=== PATIENT | male | born 1985 | race Caucasian/White ===

== ENCOUNTER 2016-09-06 08:19 | Inpatient (IN) | payer OTHER ==
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
[2016-09-06] MEDS ORDERED: ONDANSETRON 4 MG/2 ML VIAL IVP ONE (08:30)
[2016-09-06] MEDS ORDERED: fentaNYL 100 MCG/2 ML INJ IVP ONE (08:30)
[2016-09-06] MEDS ORDERED: IOPAMIDOL (ISOVUE-300) 100 ML BTL ONE (08:33)
[2016-09-06 09:04] LABS: ANION GAP 19 mEq/L (8-16); CALCIUM 9.9 mg/dL (8.5-10.4); CARBON DIOXIDE 20 mEq/l (22-31); CHLORIDE 107 mEq/L (97-110); CREATININE 0.9 mg/dL (0.7-1.3); GLOMERULAR FILTRATION RATE > 60; GLUCOSE 117 mg/dL (70-100); POTASSIUM 4.4 mEq/L (3.5-5.2); SODIUM 146 mEq/L (134-144)
[2016-09-06 09:09] LABS: % IMMATURE GRANULYOCYTES 1.8 % (0.0-1.1); ABSOLUTE IMMATURE GRANULOCYTES 0.15 10^3/uL (0.00-0.10); ADD DIFF? NO; ADD MORPH? NO; ADD SCAN? NO; ATYPICAL LYMPHOCYTE FLAG 0 (0-99); FRAGMENT RBC FLAG 0 (0-99); HEMATOCRIT 46.6 % (40.0-51.0); HEMOGLOBIN 15.9 g/dL (13.7-17.5); LEFT SHIFT FLG 20 (0-99); LIPEMIA HEMOLYSIS FLAG 90 (0-99); MEAN CELL HEMOGLOBIN 30.9 pg (27.9-34.1); MEAN CELL HEMOGLOBIN CONCENTR. 34.1 g/dL (32.4-36.7); MEAN CELL VOLUME 90.5 fL (81.5-99.8); MEAN PLATELET VOLUME 10.9 fL (8.7-11.7); PLATELET CLUMPS FLAG 10 (0-99); PLATELET COUNT 259 10^3/uL (150-400); RED BLOOD CELL COUNT 5.15 10^6/uL (4.40-6.38); RED CELL DISTRIBUTION WIDTH 11.8 % (11.5-15.2)
[2016-09-06] MEDS ORDERED: LET GEL TOPICAL 1 EA SYR TP ONE (09:19)
[2016-09-06 09:33] LABS: INR 1.08 (0.83-1.16); PROTIME(PATIENT) 13.9 SEC (12.0-15.0)
[2016-09-06] MEDS ORDERED: ONDANSETRON 4 MG/2 ML VIAL IVP PRN (09:53)
[2016-09-06] MEDS ORDERED: ACETAMINOPHEN 325 MG TAB PO PRN (09:53)
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
[2016-09-06] MEDS ORDERED: NS 1,000 ML IV ONE (10:02)
[2016-09-06] MEDS: HYDROmorphONE/DILAUDID 1 MG/ML SYR IVP PRN ×2 (12:43→23:28)
[2016-09-06] MEDS: NS 1,000 ML IV SCH (13:35)
[2016-09-06] MEDS: levETIRAcetam 500 MG TAB PO SCH ×2 (14:38→19:59)
[2016-09-06 15:52] LABS: % IMMATURE GRANULYOCYTES 0.4 % (0.0-1.1); ABSOLUTE IMMATURE GRANULOCYTES 0.05 10^3/uL (0.00-0.10); ADD DIFF? NO; ADD MORPH? NO; ADD SCAN? NO; ATYPICAL LYMPHOCYTE FLAG 0 (0-99); FRAGMENT RBC FLAG 0 (0-99); MEAN PLATELET VOLUME 10.5 fL (8.7-11.7); PLATELET CLUMPS FLAG 0 (0-99)
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
[2016-09-06 15:58] LABS: HEMATOCRIT 38.8 % (40.0-51.0); HEMOGLOBIN 13.3 g/dL (13.7-17.5); LEFT SHIFT FLG 10 (0-99); LIPEMIA HEMOLYSIS FLAG 90 (0-99); MEAN CELL HEMOGLOBIN CONCENTR. 34.3 g/dL (32.4-36.7); MEAN CELL VOLUME 90.4 fL (81.5-99.8); PLATELET COUNT 156 10^3/uL (150-400); RED BLOOD CELL COUNT 4.29 10^6/uL (4.40-6.38); RED CELL DISTRIBUTION WIDTH 11.9 % (11.5-15.2)
[2016-09-06] MEDS: HYDROCODONE/APAP 5/325 TAB PO PRN (19:58)
[2016-09-06] MEDS ORDERED: levETIRAcetam 500 MG TAB PO SCH (21:00)
[2016-09-06 23:27] LABS: HEMATOCRIT 38.6 % (40.0-51.0)
[2016-09-06 23:49] LABS: POTASSIUM 4.4 mEq/L (3.5-5.2)
[2016-09-07 04:37] LABS: % IMMATURE GRANULYOCYTES 0.4 % (0.0-1.1); ABSOLUTE IMMATURE GRANULOCYTES 0.04 10^3/uL (0.00-0.10); ADD DIFF? NO; ADD MORPH? NO; ADD SCAN? NO; ATYPICAL LYMPHOCYTE FLAG 0 (0-99); FRAGMENT RBC FLAG 0 (0-99); HEMOGLOBIN 12.8 g/dL (13.7-17.5); LEFT SHIFT FLG 10 (0-99); LIPEMIA HEMOLYSIS FLAG 80 (0-99); MEAN CELL HEMOGLOBIN 30.8 pg (27.9-34.1); MEAN CELL HEMOGLOBIN CONCENTR. 33.7 g/dL (32.4-36.7); MEAN CELL VOLUME 91.3 fL (81.5-99.8); PLATELET CLUMPS FLAG 10 (0-99); PLATELET COUNT 132 10^3/uL (150-400); RED BLOOD CELL COUNT 4.16 10^6/uL (4.40-6.38); RED CELL DISTRIBUTION WIDTH 12.2 % (11.5-15.2)
[2016-09-07 04:56] LABS: ANION GAP 11 mEq/L (8-16); CARBON DIOXIDE 20 mEq/l (22-31); CHLORIDE 111 mEq/L (97-110); CREATININE 0.7 mg/dL (0.7-1.3); GLOMERULAR FILTRATION RATE > 60; GLUCOSE 103 mg/dL (70-100); POTASSIUM 4.4 mEq/L (3.5-5.2); SODIUM 142 mEq/L (134-144)
[2016-09-07] MEDS: HYDROCODONE/APAP 5/325 TAB PO PRN ×2 (05:46→17:08)
[2016-09-07] MEDS: HYDROmorphONE/DILAUDID 1 MG/ML SYR IVP PRN (05:46)
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
[2016-09-07] MEDS: levETIRAcetam 500 MG TAB PO SCH ×2 (08:18→21:02)
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
[2016-09-07] MEDS ORDERED: BISACODYL 10 MG SUPP PR PRN (11:28)
[2016-09-07] MEDS ORDERED: LACTULOSE 20 GM/30 ML UDCUP PO PRN (11:28)
[2016-09-07] MEDS ORDERED: POLYETHYLENE GLYCOL 3350 17 GM PKT PO PRN (11:28)
[2016-09-07] MEDS ORDERED: MAGNESIUM HYDROXIDE 30 ML UDCUP PO PRN (11:28)
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
[2016-09-07] MEDS: SENNOSIDES/DOCUSATE SODIUM TAB PO SCH (21:02)
[2016-09-07] MEDS: NS 1,000 ML IV SCH (22:54)
[2016-09-08] MEDS: HYDROCODONE/APAP 5/325 TAB PO PRN ×3 (03:04→19:05)
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
[2016-09-08] MEDS: SENNOSIDES/DOCUSATE SODIUM TAB PO SCH ×2 (10:30→20:39)
[2016-09-08] MEDS: levETIRAcetam 500 MG TAB PO SCH ×2 (10:31→20:39)
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
[2016-09-08] MEDS: HYDROmorphONE/DILAUDID 1 MG/ML SYR IVP PRN (16:25)
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
[2016-09-09] MEDS: SENNOSIDES/DOCUSATE SODIUM TAB PO SCH ×2 (08:50→19:57)
[2016-09-09] MEDS: levETIRAcetam 500 MG TAB PO SCH ×2 (08:50→19:55)
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
[2016-09-09] MEDS: HYDROCODONE/APAP 5/325 TAB PO PRN ×2 (10:18→18:10)
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
[2016-09-10] MEDS: HYDROCODONE/APAP 5/325 TAB PO PRN ×2 (01:07→08:21)
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
[2016-09-10 07:53] VITALS: BP 125/84; PULSE 57; RESP 14; TEMP 98.2
[2016-09-10] MEDS: levETIRAcetam 500 MG TAB PO SCH (08:21)
[2016-09-10] MEDS: SENNOSIDES/DOCUSATE SODIUM TAB PO SCH (08:22)
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
[2016-09-10 14:21] VITALS: O2SAT 96
== END 2016-09-10 13:35 | disposition home or self-care (01) | DRG 964 ==
LOC: F2N 11:13 → F3N 09-09 18:38
PROVIDERS: ADMIT Surgery; ATTEND Surgery
DX: S22.048A Other fracture of fourth thoracic vertebra, initial encounter for closed fracture (principal); S22.42XA Multiple fractures of ribs, left side, initial encounter for closed fracture; S27.0XXA Traumatic pneumothorax, initial encounter; S06.6X0A Traumatic subarachnoid hemorrhage without loss of consciousness, initial encounter; S41.112A Laceration without foreign body of left upper arm, initial encounter; S01.511A Laceration without foreign body of lip, initial encounter; V13.4XXA Pedal cycle driver injured in collision with car, pick-up truck or van in traffic accident, initial encounter; Y93.55 Activity, bike riding; S01.111A Laceration without foreign body of right eyelid and periocular area, initial encounter
CPT/HCPCS: 82947-QW; 92507-GN; 92523-GN; 96374; 97116-GP; 97162-GP; 97165-GO; 97168-GO; 97535-GO; J1170; J2405; J3010; L0174; Q9967

== ENCOUNTER 2016-09-17 11:24 | Emergency (ER) | payer OTHER ==
[2016-09-17] MEDS ORDERED: IOPAMIDOL (ISOVUE-300) 100 ML BTL ONE (11:58)
[2016-09-17 12:00] LABS: % IMMATURE GRANULYOCYTES 0.6 % (0.0-1.1); ABSOLUTE IMMATURE GRANULOCYTES 0.04 10^3/uL (0.00-0.10); ADD DIFF? NO; ADD MORPH? NO; ADD SCAN? NO; ATYPICAL LYMPHOCYTE FLAG 10 (0-99); FRAGMENT RBC FLAG 0 (0-99); HEMATOCRIT 40.9 % (40.0-51.0); HEMOGLOBIN 14.2 g/dL (13.7-17.5); LEFT SHIFT FLG 0 (0-99); LIPEMIA HEMOLYSIS FLAG 90 (0-99); MEAN CELL HEMOGLOBIN 30.7 pg (27.9-34.1); MEAN CELL HEMOGLOBIN CONCENTR. 34.7 g/dL (32.4-36.7); MEAN CELL VOLUME 88.3 fL (81.5-99.8); MEAN PLATELET VOLUME 9.2 fL (8.7-11.7); PLATELET CLUMPS FLAG 10 (0-99); PLATELET COUNT 249 10^3/uL (150-400); RED BLOOD CELL COUNT 4.63 10^6/uL (4.40-6.38); RED CELL DISTRIBUTION WIDTH 11.5 % (11.5-15.2)
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
[2016-09-17] MEDS ORDERED: HYDROmorphONE/DILAUDID 1 MG/ML SYR IVP ONE (12:09)
[2016-09-17 12:19] LABS: ANION GAP 14 mEq/L (8-16); CALCIUM 9.6 mg/dL (8.5-10.4); CARBON DIOXIDE 25 mEq/l (22-31); CHLORIDE 102 mEq/L (97-110); CREATININE 0.7 mg/dL (0.7-1.3); GLOMERULAR FILTRATION RATE > 60; GLUCOSE 84 mg/dL (70-100); SODIUM 141 mEq/L (134-144)
[2016-09-17 13:14] VITALS: BP 115/54; PULSE 45; RESP 16; TEMP 97.9; O2SAT 96
== END 2016-09-17 13:13 | disposition home or self-care (01) ==
DX: G89.11 Acute pain due to trauma (principal)
CPT/HCPCS: 82947-QW; 96374; J1170; Q9967

== ENCOUNTER 2016-09-24 05:16 | Emergency (ER) | payer OTHER ==
[2016-09-24 05:19] VITALS: RESP 14; TEMP 97.7
[2016-09-24 05:20] VITALS: BP 113/58; PULSE 50; O2SAT 99
[2016-09-24] MEDS ORDERED: ACETAMINOPHEN 500 MG TAB PO ONE (05:40)
[2016-09-24] MEDS ORDERED: IBUPROFEN 200 MG TAB PO ONE (05:40)
[2016-09-24] MEDS ORDERED: oxyCODONE IR 5 MG TAB PO ONE (05:41)
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
== END 2016-09-24 05:57 | disposition home or self-care (01) ==
DX: S22.028D Other fracture of second thoracic vertebra, subsequent encounter for fracture with routine healing (principal); Z91.010 Allergy to peanuts; V89.2XXD Person injured in unspecified motor-vehicle accident, traffic, subsequent encounter

== ENCOUNTER → 2016-11-13 | Outpatient (CLI) | payer OTHER | LOC: FIMAGING 14:58 | PROVIDERS: ATTEND Physician Assistant Surgical | DX: S22.008D Other fracture of unspecified thoracic vertebra, subsequent encounter for fracture with routine healing (principal); S06.6X Traumatic subarachnoid hemorrhage ==

== ENCOUNTER → 2016-11-15 | Outpatient (CLI) | payer OTHER | LOC: FIMAGING 16:34 | PROVIDERS: ATTEND Physician Assistant Surgical | DX: M54.2 Cervicalgia (principal); S06.6X Traumatic subarachnoid hemorrhage ==

== ENCOUNTER → 2017-01-03 | Outpatient (CLI) | payer OTHER | LOC: FIMAGING 09:32 | PROVIDERS: ATTEND Physician Assistant Surgical | DX: S22.008D Other fracture of unspecified thoracic vertebra, subsequent encounter for fracture with routine healing (principal); S06.6X Traumatic subarachnoid hemorrhage ==